=== PATIENT | female | born 1970 | race Caucasian/White ===

== ENCOUNTER 2017-07-19 21:44 | Observation (INO) ==
[2017-07-19] MEDS ORDERED: NITROGLYCERIN 2% OINT 1 INCH/GM PACK TOP STA (22:10)
[2017-07-19] MEDS ORDERED: KETOROLAC 30 MG/1 ML VIAL ONE (22:41)
[2017-07-19 22:44] LABS: Basophils # 0.1 10*3/uL (0.0-0.2); Basophils % 0.7 % (0.0-0.8); Eosinophils # 0.2 10*3/uL (0.0-0.87); Eosinophils % 2.3 % (0.00-10.9); Hematocrit 27.7 VOL% (35.7-47.0); Hemoglobin 8.9 GM/DL (12.0-16.0); Immature Granulocytes % 0.4 %; Immature Granulocytes Absolute 0.03 #; Lymphocytes # 1.7 10*3/uL (1.4-4.0); Lymphocytes % 21.3 % (21.3-54.2); Mean Corpuscular HGB Conc 32.1 GM/DL (32-36); Mean Corpuscular Hemoglobin 28 PG (27-34); Mean Corpuscular Volume 87.1 FL (87-102); Mean Platelet Volume 9.5 FL (9.6-12.0); Monocytes # 0.4 10*3/uL (0.11-0.8); Monocytes % 5.2 % (1.7-12.7); Neutrophils # 5.7 10*3/uL (1.4-7.4); Neutrophils % 70.1 % (38.7-73.9); Platelet Count 392 T/CUMM (130-400); Red Blood Count 3.18 MC/CUMM (3.8-5.5); Red Cell Distribution Width 12.5 % (9.3-17.3); White Blood Count 8.1 T/CUMM (4-12)
[2017-07-19] MEDS ORDERED: NITROGLYCERIN 2% OINT 1 INCH/GM PACK TOP ONE (22:49)
[2017-07-19 22:54] LABS: INR 0.9; Partial Thromboplastin Time 26.7 SECS (0-40)
[2017-07-19 23:06] LABS: Lactic Acid 1.3 MMOL/L (0.4-2.0)
[2017-07-19 23:15] LABS: Alanine Aminotransferase < 9 U/L (13-56); Albumin 2.8 G/DL (3.4-5.0); Alkaline Phosphatase 90 U/L (45-117); Aspartate Amino Transferase 13 U/L (0-37); Bilirubin,Total < 0.39 MG/DL (0.2-1.0); Blood Urea Nitrogen 10 MG/DL (7-18); Glucose 189 MG/DL (74-106); Osmolality,Calculated 286.1 MOS/KG (273-304); Potassium 3.7 MMOL/L (3.5-5.1); Sodium 142 MMOL/L (136-145); Total Protein 7.2 G/DL (6.4-8.3)
[2017-07-20] MEDS ORDERED: oxyCODONE/ACETAMINOPHEN 5-325 MG TABLET PO STA (00:25)
[2017-07-20] MEDS ORDERED: oxyCODONE/ACETAMINOPHEN 5-325 MG TABLET ONE (00:29)
[2017-07-20] MEDS ORDERED: GLUCAGON 1 MG VIAL IM PRN (00:37)
[2017-07-20] MEDS ORDERED: ONDANSETRON 4 MG/2 ML VIAL IV PRN (00:37)
[2017-07-20] MEDS ORDERED: DEXTROSE 50% 25 GM/50 ML VIAL IV PRN (00:37)
[2017-07-20] MEDS: oxyCODONE IR 5 MG TABLET PO SCH ×3 (04:43→16:32)
[2017-07-20 07:39] LABS: Basophils # 0.1 10*3/uL (0.0-0.2); Basophils % 0.7 % (0.0-0.8); Eosinophils # 0.2 10*3/uL (0.0-0.87); Eosinophils % 2.6 % (0.00-10.9); Hematocrit 25.4 VOL% (35.7-47.0); Hemoglobin 8.3 GM/DL (12.0-16.0); Immature Granulocytes % 0.4 %; Immature Granulocytes Absolute 0.03 #; Lymphocytes # 2.2 10*3/uL (1.4-4.0); Lymphocytes % 31.9 % (21.3-54.2); Mean Corpuscular HGB Conc 32.7 GM/DL (32-36); Mean Corpuscular Hemoglobin 28 PG (27-34); Mean Corpuscular Volume 84.9 FL (87-102); Mean Platelet Volume 9.3 FL (9.6-12.0); Monocytes # 0.5 10*3/uL (0.11-0.8); Monocytes % 7.9 % (1.7-12.7); Neutrophils # 3.9 10*3/uL (1.4-7.4); Neutrophils % 56.5 % (38.7-73.9); Platelet Count 318 T/CUMM (130-400); Red Blood Count 2.99 MC/CUMM (3.8-5.5); Red Cell Distribution Width 12.7 % (9.3-17.3); White Blood Count 6.8 T/CUMM (4-12)
[2017-07-20 08:39] LABS: Alanine Aminotransferase < 9 U/L (13-56); Albumin 2.6 G/DL (3.4-5.0); Alkaline Phosphatase 83 U/L (45-117); Aspartate Amino Transferase 11 U/L (0-37); Bilirubin,Total < 0.39 MG/DL (0.2-1.0); Blood Urea Nitrogen 9 MG/DL (7-18); Calcium 8.6 MG/DL (8.5-10.1); Glucose 146 MG/DL (74-106); Osmolality,Calculated 280.4 MOS/KG (273-304); Potassium 3.9 MMOL/L (3.5-5.1); Sodium 140 MMOL/L (136-145); Total Protein 6.6 G/DL (6.4-8.3)
[2017-07-20] MEDS ORDERED: METOPROLOL TARTRATE 25 MG TABLET PO SCH (09:00)
[2017-07-20] MEDS: INSULIN REGULAR 100 UNIT/ML SUBCUT SCH ×4 (10:20→20:54)
[2017-07-20] MEDS: PANTOPRAZOLE 40 MG TABLET PO SCH (10:20)
[2017-07-20] MEDS: ENOXAPARIN 40 MG/0.4 ML SYRINGE SUBCUT SCH (10:21)
[2017-07-20] MEDS: ATORVASTATIN 40 MG TABLET PO SCH (14:07)
[2017-07-20] MEDS: ALPRAZolam 0.5 MG TABLET PO PRN (14:07)
[2017-07-20] MEDS ORDERED: oxyCODONE/ACETAMINOPHEN 5-325 MG TABLET PO ONE (20:29)
[2017-07-20] MEDS ORDERED: ALPRAZolam 0.5 MG TABLET PO ONE (21:13)
[2017-07-20] MEDS ORDERED: ALBUTEROL/IPRATROPIUM 3 ML NEB RESP TX PRN (21:13)
[2017-07-21] MEDS ORDERED: ALPRAZolam 0.5 MG TABLET PO SCH ×2 (00:30→09:00)
[2017-07-21] MEDS: oxyCODONE IR 5 MG TABLET PO SCH ×3 (00:35→11:05)
[2017-07-21] MEDS: ALPRAZolam 0.5 MG TABLET PO PRN (00:38)
[2017-07-21] MEDS ORDERED: ALPRAZolam 0.5 MG TABLET PO PRN (08:30)
[2017-07-21] MEDS: PANTOPRAZOLE 40 MG TABLET PO SCH (08:43)
[2017-07-21] MEDS: ATORVASTATIN 40 MG TABLET PO SCH (08:43)
[2017-07-21] MEDS: INSULIN REGULAR 100 UNIT/ML SUBCUT SCH ×2 (08:44→13:09)
[2017-07-21] MEDS: ENOXAPARIN 40 MG/0.4 ML SYRINGE SUBCUT SCH (08:45)
[2017-07-21] MEDS ORDERED: MULTIVITAMIN (CENTRUM) TABLET PO SCH (09:00)
[2017-07-21] MEDS ORDERED: METOPROLOL SUCCINATE XL 25 MG TABLET PO SCH (09:00)
[2017-07-21] MEDS ORDERED: ASPIRIN CHEW 81 MG TABLET PO SCH (09:00)
[2017-07-21 12:42] VITALS: BP 181/80
== END 2017-07-21 12:43 | disposition home health service (06) ==
LOC: N.ED 21:44 → N.TELEN 07-20 00:37 → INTOOBSV 07-20 00:37 → N.EDINP 07-20 00:37 → N.TELEN 07-20 01:13
PROVIDERS: ADMIT Internal Medicine; ATTEND Internal Medicine

== ENCOUNTER 2018-03-20 14:03 | Inpatient (IN) ==
[2018-03-20] MEDS ORDERED: GLUCAGON 1 MG VIAL IM PRN (15:30)
[2018-03-20] MEDS ORDERED: MORPHINE 4 MG/1 ML VIAL IV PRN (15:30)
[2018-03-20] MEDS ORDERED: diphenhydrAMINE CAP 25 MG CAPSULE PO PRN (15:30)
[2018-03-20] MEDS ORDERED: DEXTROSE 50% 25 GM/50 ML VIAL IV PRN (15:30)
[2018-03-20] MEDS ORDERED: NICOTINE 21 MG/24 HR PATCH TRANSDERM PRN (15:30)
[2018-03-20 16:33] LABS: Basophils % 0.4 % (0.0-0.8); Hematocrit 29.9 VOL% (35.7-47.0); Hemoglobin 9.9 GM/DL (12.0-16.0); Immature Granulocytes % 0.4 %; Immature Granulocytes Absolute 0.03 #; Lymphocytes # 0.9 10*3/uL (1.4-4.0); Lymphocytes % 13.6 % (21.3-54.2); Mean Corpuscular HGB Conc 33.1 GM/DL (32-36); Mean Corpuscular Hemoglobin 29 PG (27-34); Mean Corpuscular Volume 88.7 FL (87-102); Mean Platelet Volume 10.6 FL (9.6-12.0); Monocytes # 0.4 10*3/uL (0.11-0.8); Monocytes % 5.5 % (1.7-12.7); Neutrophils # 5.4 10*3/uL (1.4-7.4); Neutrophils % 80.1 % (38.7-73.9); Platelet Count 136 T/CUMM (130-400); Red Blood Count 3.37 MC/CUMM (3.8-5.5); Red Cell Distribution Width 12.8 % (9.3-17.3); White Blood Count 6.8 T/CUMM (4-12)
[2018-03-20 16:54] LABS: Alanine Aminotransferase 9 U/L (13-56); Albumin 1.5 G/DL (3.4-5.0); Alkaline Phosphatase 90 U/L (45-117); Aspartate Amino Transferase 25 U/L (0-37); Bilirubin,Total < 0.39 MG/DL (0.2-1.0); Blood Urea Nitrogen 14 MG/DL (7-18); Glucose 388 MG/DL (74-106); Osmolality,Calculated 280.5 MOS/KG (273-304); Potassium 2.8 MMOL/L (3.5-5.1); Sodium 132 MMOL/L (136-145); Total Protein 5.7 G/DL (6.4-8.3)
[2018-03-20] MEDS ORDERED: INSULIN LISPRO 100 UNIT/ML SUBCUT SCH (17:00)
[2018-03-20 17:12] LABS: Lactic Acid 1.2 MMOL/L (0.4-2.0)
[2018-03-20] MEDS ORDERED: ASPIRIN CHEW 81 MG TABLET PO ONE (17:19)
[2018-03-20] MEDS: ENOXAPARIN 40 MG/0.4 ML SYRINGE SUBCUT SCH (17:29)
[2018-03-20] MEDS: NITROGLYCERIN 2% OINT 1 INCH/GM PACK TOP SCH (18:03)
[2018-03-20] MEDS: PANTOPRAZOLE 40 MG TABLET PO SCH (18:03)
[2018-03-20] MEDS: cefTRIAXone 1,000 MG in SYRINGE 1 EACH IV SCH (18:45)
[2018-03-20] MEDS: AZITHROMYCIN INJ 500 MG in SODIUM CHLORIDE 0.9% 250 ML IV SCH (18:45)
[2018-03-20] MEDS: ALBUTEROL/IPRATROPIUM 3 ML NEB RESP TX SCH (19:50)
[2018-03-20] MEDS: guaiFENesin/DM ER 600-30 MG TABLET PO PRN (20:24)
[2018-03-20] MEDS: POTASSIUM CHLORIDE 20 MEQ/15 ML UDCUP PER TUBE PRN (20:25)
[2018-03-20] MEDS: INSULIN LISPRO 100 UNIT/ML SUBCUT SCH ×2 (21:26→21:29)
[2018-03-20] MEDS: FUROSEMIDE 40 MG/4 ML VIAL IV SCH (21:26)
[2018-03-20] MEDS: ACETAMINOPHEN 325 MG TABLET PO PRN (21:45)
[2018-03-21] MEDS ORDERED: ENOXAPARIN 60 MG/0.6 ML SYRINGE SUBCUT ONE
[2018-03-21] MEDS: POTASSIUM CHLORIDE 20 MEQ/15 ML UDCUP PER TUBE PRN ×2 (00:20→02:40)
[2018-03-21] MEDS: ALBUTEROL/IPRATROPIUM 3 ML NEB RESP TX SCH ×4 (00:33→19:32)
[2018-03-21] MEDS: NITROGLYCERIN 2% OINT 1 INCH/GM PACK TOP SCH ×4 (02:39→17:04)
[2018-03-21 05:58] LABS: Basophils % 0.3 % (0.0-0.8); Eosinophils % 0.4 % (0.00-10.9); Hematocrit 25.5 VOL% (35.7-47.0); Hemoglobin 8.6 GM/DL (12.0-16.0); Immature Granulocytes % 0.8 %; Immature Granulocytes Absolute 0.06 #; Lymphocytes # 1.6 10*3/uL (1.4-4.0); Lymphocytes % 21.9 % (21.3-54.2); Mean Corpuscular HGB Conc 33.7 GM/DL (32-36); Mean Corpuscular Hemoglobin 30 PG (27-34); Mean Corpuscular Volume 89.2 FL (87-102); Mean Platelet Volume 11.8 FL (9.6-12.0); Monocytes # 0.5 10*3/uL (0.11-0.8); Monocytes % 6.6 % (1.7-12.7); Neutrophils # 5.1 10*3/uL (1.4-7.4); Platelet Count 112 T/CUMM (130-400); Red Blood Count 2.86 MC/CUMM (3.8-5.5); Red Cell Distribution Width 12.8 % (9.3-17.3); White Blood Count 7.2 T/CUMM (4-12)
[2018-03-21 06:21] LABS: Platelet Estimate Decreased; Polychromasia Few
[2018-03-21 06:37] LABS: Calcium 7.7 MG/DL (8.5-10.1); Osmolality,Calculated 267.2 MOS/KG (273-304); Potassium 3.6 MMOL/L (3.5-5.1); Risk Ratio 9.62; Thyroid Stimulating Hormone 0.647 uIU/ml (0.358-3.74); VLDL CHOLESTEROL 65.4 MG/DL
[2018-03-21] MEDS ORDERED: METOPROLOL TARTRATE 5 MG/5 ML VIAL IV ONE (07:29)
[2018-03-21] MEDS ORDERED: HYDROmorphone 2 MG/1 ML VIAL ONE (07:38)
[2018-03-21] MEDS ORDERED: MAGNESIUM SULF RIDER 4 GM in PREMIX 1 EACH IV PRN (07:43)
[2018-03-21] MEDS ORDERED: MAGNESIUM SULF RIDER 2 GM in PREMIX 1 EACH IV PRN (07:43)
[2018-03-21] MEDS ORDERED: FUROSEMIDE 40 MG/4 ML VIAL IV ONE (07:45)
[2018-03-21] MEDS ORDERED: HYDROmorphone 2 MG/1 ML VIAL IV ONE (07:47)
[2018-03-21] MEDS: INSULIN LISPRO 100 UNIT/ML SUBCUT SCH ×4 (07:49→21:03)
[2018-03-21] MEDS ORDERED: methylPREDNISolone SOD SUC 125 MG/2 ML VIAL IV SCH (08:00)
[2018-03-21] MEDS ORDERED: POTASSIUM CHLORIDE 10 MEQ TABLET PO PRN (08:47)
[2018-03-21] MEDS ORDERED: predniSONE 10 MG TABLET PO SCH (09:00)
[2018-03-21] MEDS ORDERED: ROSUVASTATIN 20 MG TABLET PO SCH (09:00)
[2018-03-21] MEDS: FUROSEMIDE 40 MG/4 ML VIAL IV SCH ×2 (09:16→21:04)
[2018-03-21] MEDS: ASPIRIN EC 81 MG TABLET PO SCH (09:25)
[2018-03-21] MEDS: PANTOPRAZOLE 40 MG TABLET PO SCH (09:25)
[2018-03-21] MEDS: BUDESONIDE/FORMOTEROL 160-4.5 INHALER 6 GM INH SCH ×2 (09:25→21:05)
[2018-03-21] MEDS: GABAPENTIN 300 MG CAPSULE PO SCH ×2 (09:25→21:05)
[2018-03-21] MEDS: METOPROLOL TARTRATE 25 MG TABLET PO SCH ×2 (10:59→21:05)
[2018-03-21] MEDS ORDERED: ACETYLCYSTEINE 600 MG CAPSULE PO SCH (11:00)
[2018-03-21] MEDS: methylPREDNISolone SOD SUC 40 MG/1 ML VIAL IV SCH (15:47)
[2018-03-21] MEDS: guaiFENesin/DM ER 600-30 MG TABLET PO PRN (15:54)
[2018-03-21] MEDS: ENOXAPARIN 40 MG/0.4 ML SYRINGE SUBCUT SCH (15:57)
[2018-03-21] MEDS: cefTRIAXone 1,000 MG in SYRINGE 1 EACH IV SCH (16:09)
[2018-03-21] MEDS: ALBUTEROL 2.5 MG/3 ML NEB RESP TX PRN (16:13)
[2018-03-21] MEDS: AZITHROMYCIN INJ 500 MG in SODIUM CHLORIDE 0.9% 250 ML IV SCH (17:12)
[2018-03-21 18:17] LABS: Hematocrit 25.8 VOL% (35.7-47.0); Hemoglobin 8.4 GM/DL (12.0-16.0)
[2018-03-21] MEDS: INSULIN GLARGINE 100 UNIT/ML SUBCUT SCH (21:03)
[2018-03-21] MEDS: traZODone 50 MG TABLET PO SCH (21:05)
[2018-03-22] MEDS: methylPREDNISolone SOD SUC 40 MG/1 ML VIAL IV SCH ×4 (00:44→21:43)
[2018-03-22] MEDS: NITROGLYCERIN 2% OINT 1 INCH/GM PACK TOP SCH ×2 (00:45→06:15)
[2018-03-22] MEDS: ALBUTEROL/IPRATROPIUM 3 ML NEB RESP TX SCH ×4 (01:04→19:17)
[2018-03-22 04:25] LABS: Basophils % 0.1 % (0.0-0.8); Hematocrit 25.6 VOL% (35.7-47.0); Hemoglobin 8.3 GM/DL (12.0-16.0); Immature Granulocytes % 0.6 %; Immature Granulocytes Absolute 0.06 #; Lymphocytes # 1.1 10*3/uL (1.4-4.0); Lymphocytes % 10.1 % (21.3-54.2); Mean Corpuscular HGB Conc 32.4 GM/DL (32-36); Mean Corpuscular Hemoglobin 30 PG (27-34); Mean Corpuscular Volume 91.1 FL (87-102); Mean Platelet Volume 11.4 FL (9.6-12.0); Monocytes # 0.5 10*3/uL (0.11-0.8); Monocytes % 4.3 % (1.7-12.7); Neutrophils % 84.9 % (38.7-73.9); Platelet Count 159 T/CUMM (130-400); Red Blood Count 2.81 MC/CUMM (3.8-5.5); Red Cell Distribution Width 12.9 % (9.3-17.3); White Blood Count 10.5 T/CUMM (4-12)
[2018-03-22 04:56] LABS: Blood Urea Nitrogen 34 MG/DL (7-18); Calcium 7.7 MG/DL (8.5-10.1); Glucose 396 MG/DL (74-106); Osmolality,Calculated 282.9 MOS/KG (273-304); Potassium 3.7 MMOL/L (3.5-5.1); Sodium 129 MMOL/L (136-145)
[2018-03-22] MEDS: FUROSEMIDE 40 MG/4 ML VIAL IV SCH (08:05)
[2018-03-22] MEDS: guaiFENesin/DM ER 600-30 MG TABLET PO PRN ×2 (08:06→21:44)
[2018-03-22] MEDS: INSULIN LISPRO 100 UNIT/ML SUBCUT SCH ×4 (08:49→21:43)
[2018-03-22] MEDS: PANTOPRAZOLE 40 MG TABLET PO SCH (08:50)
[2018-03-22] MEDS: ROSUVASTATIN 20 MG TABLET PO SCH (08:50)
[2018-03-22] MEDS: ASPIRIN EC 81 MG TABLET PO SCH (08:50)
[2018-03-22] MEDS: GABAPENTIN 300 MG CAPSULE PO SCH ×2 (08:50→21:44)
[2018-03-22] MEDS: METOPROLOL TARTRATE 25 MG TABLET PO SCH ×2 (08:50→21:44)
[2018-03-22] MEDS: MEPERIDINE 25 MG/1 ML VIAL IV PRN ×2 (09:01→21:30)
[2018-03-22] MEDS: BUDESONIDE/FORMOTEROL 160-4.5 INHALER 6 GM INH SCH ×2 (09:04→21:44)
[2018-03-22] MEDS: SODIUM BICARBONATE 650 MG TABLET PO SCH ×3 (09:15→21:44)
[2018-03-22] MEDS: BUTALBITAL/ACETAMIN/CAFFEINE 50-325-40 MG TABLET PO PRN ×2 (11:40→16:40)
[2018-03-22] MEDS: ENOXAPARIN 40 MG/0.4 ML SYRINGE SUBCUT SCH (14:49)
[2018-03-22] MEDS: cefTRIAXone 1,000 MG in SYRINGE 1 EACH IV SCH (16:38)
[2018-03-22] MEDS: INSULIN GLARGINE 100 UNIT/ML SUBCUT SCH (21:43)
[2018-03-22] MEDS: AZITHROMYCIN 250 MG TABLET PO SCH (21:44)
[2018-03-22] MEDS: traZODone 50 MG TABLET PO SCH (21:44)
[2018-03-23] MEDS: ALBUTEROL/IPRATROPIUM 3 ML NEB RESP TX SCH ×4 (00:43→19:16)
[2018-03-23 04:47] LABS: Calcium 7.7 MG/DL (8.5-10.1); Osmolality,Calculated 271.8 MOS/KG (273-304); Potassium 3.4 MMOL/L (3.5-5.1)
[2018-03-23] MEDS: POTASSIUM CHLORIDE 20 MEQ/15 ML UDCUP PER TUBE PRN ×3 (06:00→12:46)
[2018-03-23] MEDS: MEPERIDINE 25 MG/1 ML VIAL IV PRN ×3 (07:40→19:37)
[2018-03-23] MEDS: INSULIN LISPRO 100 UNIT/ML SUBCUT SCH ×4 (07:45→21:21)
[2018-03-23] MEDS: SODIUM BICARBONATE 650 MG TABLET PO SCH ×3 (09:01→21:21)
[2018-03-23] MEDS: FUROSEMIDE 40 MG/4 ML VIAL IV SCH (09:02)
[2018-03-23] MEDS: ASPIRIN EC 81 MG TABLET PO SCH (09:02)
[2018-03-23] MEDS: GABAPENTIN 300 MG CAPSULE PO SCH ×2 (09:03→21:21)
[2018-03-23] MEDS: PANTOPRAZOLE 40 MG TABLET PO SCH (09:03)
[2018-03-23] MEDS: ROSUVASTATIN 20 MG TABLET PO SCH (09:03)
[2018-03-23] MEDS: methylPREDNISolone SOD SUC 40 MG/1 ML VIAL IV SCH ×2 (09:04→21:20)
[2018-03-23] MEDS: BUDESONIDE/FORMOTEROL 160-4.5 INHALER 6 GM INH SCH ×2 (09:05→21:22)
[2018-03-23] MEDS: METOPROLOL TARTRATE 25 MG TABLET PO SCH ×2 (09:08→21:21)
[2018-03-23] MEDS: ENOXAPARIN 40 MG/0.4 ML SYRINGE SUBCUT SCH (14:40)
[2018-03-23] MEDS: SODIUM CHLORIDE 0.9% 1,000 ML IV SCH (14:51)
[2018-03-23] MEDS: cefTRIAXone 1,000 MG in SYRINGE 1 EACH IV SCH (17:49)
[2018-03-23] MEDS: POLYETHYLENE GLYCOL POWDER 17 GM PACK PO SCH (18:33)
[2018-03-23] MEDS: BISACODYL 5 MG TABLET PO SCH (18:33)
[2018-03-23] MEDS: ONDANSETRON 4 MG/2 ML VIAL IV PRN (18:55)
[2018-03-23] MEDS: AZITHROMYCIN 250 MG TABLET PO SCH (21:20)
[2018-03-23] MEDS: guaiFENesin/DM ER 600-30 MG TABLET PO PRN (21:21)
[2018-03-23] MEDS: traZODone 50 MG TABLET PO SCH (21:21)
[2018-03-23] MEDS: DOCUSATE SODIUM 100 MG CAPSULE PO PRN (21:21)
[2018-03-23] MEDS: INSULIN GLARGINE 100 UNIT/ML SUBCUT SCH (21:21)
[2018-03-24] MEDS: ALBUTEROL/IPRATROPIUM 3 ML NEB RESP TX SCH ×4 (00:40→19:51)
[2018-03-24 04:54] LABS: Calcium 7.4 MG/DL (8.5-10.1); Osmolality,Calculated 268.2 MOS/KG (273-304); Osmolality,Calculated 270.1 MOS/KG (273-304); Potassium 5.2 MMOL/L (3.5-5.1)
[2018-03-24] MEDS: MEPERIDINE 25 MG/1 ML VIAL IV PRN (06:38)
[2018-03-24] MEDS ORDERED: POLYETHYLENE GLYCOL POWDER 17 GM PACK PO SCH (09:00)
[2018-03-24] MEDS: INSULIN LISPRO 100 UNIT/ML SUBCUT SCH ×4 (09:16→20:43)
[2018-03-24] MEDS: methylPREDNISolone SOD SUC 40 MG/1 ML VIAL IV SCH (09:16)
[2018-03-24] MEDS: METOPROLOL TARTRATE 25 MG TABLET PO SCH ×2 (09:17→20:42)
[2018-03-24] MEDS: FUROSEMIDE 40 MG/4 ML VIAL IV SCH (09:17)
[2018-03-24] MEDS: POLYETHYLENE GLYCOL POWDER 17 GM PACK PO SCH (09:17)
[2018-03-24] MEDS: SODIUM BICARBONATE 650 MG TABLET PO SCH ×3 (09:17→20:42)
[2018-03-24] MEDS: PANTOPRAZOLE 40 MG TABLET PO SCH (09:18)
[2018-03-24] MEDS: BISACODYL 5 MG TABLET PO SCH (09:18)
[2018-03-24] MEDS: ROSUVASTATIN 20 MG TABLET PO SCH (09:18)
[2018-03-24] MEDS: ASPIRIN EC 81 MG TABLET PO SCH (09:18)
[2018-03-24] MEDS: GABAPENTIN 300 MG CAPSULE PO SCH ×2 (09:18→20:41)
[2018-03-24] MEDS: SODIUM CHLORIDE 0.9% 1,000 ML IV SCH (09:27)
[2018-03-24] MEDS: BUDESONIDE/FORMOTEROL 160-4.5 INHALER 6 GM INH SCH ×2 (09:27→20:42)
[2018-03-24] MEDS ORDERED: SODIUM POLYSTYRENE SULFATE 15 GM/60 ML BOTTLE PO STA (14:26)
[2018-03-24] MEDS: cefTRIAXone 1,000 MG in SYRINGE 1 EACH IV SCH (15:07)
[2018-03-24] MEDS: ENOXAPARIN 40 MG/0.4 ML SYRINGE SUBCUT SCH (15:07)
[2018-03-24 16:01] LABS: Apearance,Urine Slightly Hazy (Clear); Bilirubin,Urine Negative (Negative); Blood, Urine Moderate mg/dL (Negative); Glucose,Urine (UA) Negative (Negative); Hyaline Casts,Urine 10 /LPF (0-3); Ketones,Urine Negative (Negative); Mucus,Urine Occasional /LPF (Occasional); Nitrite,Urine Negative (Negative); Protein,Urine 100 MG/DL; RBC,Urine 1 /HPF (0-4); Squamous Epithelial Cell,Urine Occasional /HPF (0-10); Urine Color Yellow (Yellow); Urine Specific Gravity 1.013 (1.001-1.035); Urine Urobilinogen < 2.0 EU/DL (0.2-1.0); WBC,Urine 3 /HPF (0-6)
[2018-03-24] MEDS: AZITHROMYCIN 250 MG TABLET PO SCH (20:41)
[2018-03-24] MEDS: traZODone 50 MG TABLET PO SCH (20:42)
[2018-03-24] MEDS: ONDANSETRON 4 MG/2 ML VIAL IV PRN (20:44)
[2018-03-24] MEDS: INSULIN GLARGINE 100 UNIT/ML SUBCUT SCH (20:44)
[2018-03-24] MEDS: guaiFENesin/DM ER 600-30 MG TABLET PO PRN (20:44)
[2018-03-25] MEDS: ALBUTEROL/IPRATROPIUM 3 ML NEB RESP TX SCH ×4 (01:45→19:45)
[2018-03-25 04:33] LABS: Calcium 7.1 MG/DL (8.5-10.1); Osmolality,Calculated 267.1 MOS/KG (273-304); Potassium 4.9 MMOL/L (3.5-5.1)
[2018-03-25] MEDS: SODIUM CHLORIDE 0.9% 1,000 ML IV SCH (07:29)
[2018-03-25 08:32] LABS: Basophils % 0.1 % (0.0-0.8); Eosinophils % 0.2 % (0.00-10.9); Hemoglobin 7.9 GM/DL (12.0-16.0); Immature Granulocytes % 1.8 %; Immature Granulocytes Absolute 0.19 #; Lymphocytes % 9.3 % (21.3-54.2); Mean Corpuscular HGB Conc 32.9 GM/DL (32-36); Mean Corpuscular Hemoglobin 30 PG (27-34); Mean Corpuscular Volume 89.6 FL (87-102); Mean Platelet Volume 11.3 FL (9.6-12.0); Monocytes # 0.3 10*3/uL (0.11-0.8); Monocytes % 2.9 % (1.7-12.7); NRBC # 0.11 10*3/uL; Neutrophils # 8.8 10*3/uL (1.4-7.4); Neutrophils % 85.7 % (38.7-73.9); Platelet Count 264 T/CUMM (130-400); Red Blood Count 2.68 MC/CUMM (3.8-5.5); Red Cell Distribution Width 13.3 % (9.3-17.3); White Blood Count 10.3 T/CUMM (4-12)
[2018-03-25] MEDS: SODIUM BICARBONATE 650 MG TABLET PO SCH ×3 (09:33→20:42)
[2018-03-25] MEDS: BISACODYL 5 MG TABLET PO SCH (09:33)
[2018-03-25] MEDS: INSULIN LISPRO 100 UNIT/ML SUBCUT SCH ×4 (09:33→20:16)
[2018-03-25] MEDS: ROSUVASTATIN 20 MG TABLET PO SCH (09:33)
[2018-03-25] MEDS: FUROSEMIDE 40 MG/4 ML VIAL IV SCH (09:34)
[2018-03-25] MEDS: METOPROLOL TARTRATE 25 MG TABLET PO SCH (09:34)
[2018-03-25] MEDS: PANTOPRAZOLE 40 MG TABLET PO SCH (09:34)
[2018-03-25] MEDS: predniSONE 20 MG TABLET PO SCH (09:34)
[2018-03-25] MEDS: ASPIRIN EC 81 MG TABLET PO SCH (09:34)
[2018-03-25] MEDS: POLYETHYLENE GLYCOL POWDER 17 GM PACK PO SCH (09:35)
[2018-03-25] MEDS: GABAPENTIN 300 MG CAPSULE PO SCH (09:35)
[2018-03-25] MEDS: BUDESONIDE/FORMOTEROL 160-4.5 INHALER 6 GM INH SCH ×2 (09:36→20:42)
[2018-03-25] MEDS: ALBUTEROL 2.5 MG/3 ML NEB RESP TX PRN (11:00)
[2018-03-25] MEDS ORDERED: NITROGLYCERIN SL 0.4 MG TABLET SL PRN (11:19)
[2018-03-25] MEDS: METOPROLOL TARTRATE 50 MG TABLET PO SCH ×2 (12:00→20:42)
[2018-03-25] MEDS ORDERED: SODIUM CHLORIDE 0.9% 1,000 ML IV PRN (15:08)
[2018-03-25] MEDS: ENOXAPARIN 40 MG/0.4 ML SYRINGE SUBCUT SCH (17:01)
[2018-03-25] MEDS: cefTRIAXone 1,000 MG in SYRINGE 1 EACH IV SCH (17:01)
[2018-03-25 17:34] LABS: Hematocrit 24.7 VOL% (35.7-47.0)
[2018-03-25] MEDS: GABAPENTIN 100 MG CAPSULE PO SCH (20:42)
[2018-03-25] MEDS: traZODone 50 MG TABLET PO SCH (20:42)
[2018-03-25] MEDS: AZITHROMYCIN 250 MG TABLET PO SCH (20:42)
[2018-03-25] MEDS: INSULIN GLARGINE 100 UNIT/ML SUBCUT SCH (20:46)
[2018-03-26] MEDS: ALBUTEROL/IPRATROPIUM 3 ML NEB RESP TX SCH ×4 (01:08→18:30)
[2018-03-26] MEDS: SODIUM CHLORIDE 0.9% 1,000 ML IV SCH (04:41)
[2018-03-26 07:12] LABS: Hematocrit 29.3 VOL% (35.7-47.0); Hemoglobin 9.6 GM/DL (12.0-16.0)
[2018-03-26 08:07] LABS: Calcium 6.8 MG/DL (8.5-10.1); Osmolality,Calculated 269.8 MOS/KG (273-304); Potassium 5.3 MMOL/L (3.5-5.1)
[2018-03-26] MEDS: SODIUM BICARBONATE 650 MG TABLET PO SCH ×3 (09:56→20:33)
[2018-03-26] MEDS: POLYETHYLENE GLYCOL POWDER 17 GM PACK PO SCH (09:56)
[2018-03-26] MEDS: BISACODYL 5 MG TABLET PO SCH (09:57)
[2018-03-26] MEDS: ROSUVASTATIN 20 MG TABLET PO SCH (09:57)
[2018-03-26] MEDS: FUROSEMIDE 40 MG/4 ML VIAL IV SCH (09:57)
[2018-03-26] MEDS: predniSONE 20 MG TABLET PO SCH (09:57)
[2018-03-26] MEDS: PANTOPRAZOLE 40 MG TABLET PO SCH (09:57)
[2018-03-26] MEDS: ASPIRIN EC 81 MG TABLET PO SCH (09:57)
[2018-03-26] MEDS: METOPROLOL TARTRATE 50 MG TABLET PO SCH ×2 (09:57→20:33)
[2018-03-26] MEDS: BUDESONIDE/FORMOTEROL 160-4.5 INHALER 6 GM INH SCH ×2 (10:03→20:36)
[2018-03-26] MEDS: INSULIN LISPRO 100 UNIT/ML SUBCUT SCH ×4 (10:13→20:36)
[2018-03-26] MEDS ORDERED: FUROSEMIDE 40 MG/4 ML VIAL IV ONE (11:27)
[2018-03-26 13:11] LABS: ABG HCO3 24.3 MMOL/L (20-26); ABG Oxygen Saturation 97.8 % (95-100); ABG PCO2 34.2 MM HG (35-48); ABG PO2 106.9 MM HG (80-95); ABG TCO2 25.4 MMOL/L (23-27)
[2018-03-26] MEDS: ONDANSETRON 4 MG/2 ML VIAL IV PRN (14:37)
[2018-03-26] MEDS: cefTRIAXone 1,000 MG in SYRINGE 1 EACH IV SCH (15:43)
[2018-03-26] MEDS: ENOXAPARIN 40 MG/0.4 ML SYRINGE SUBCUT SCH (15:48)
[2018-03-26] MEDS ORDERED: SODIUM PHOSPHATE ENEMA 133 ML BOTTLE RECTAL PRN (17:19)
[2018-03-26] MEDS: DOCUSATE SODIUM 100 MG CAPSULE PO PRN (20:33)
[2018-03-26] MEDS: AZITHROMYCIN 250 MG TABLET PO SCH (20:33)
[2018-03-26] MEDS: traZODone 50 MG TABLET PO SCH (20:33)
[2018-03-26] MEDS: GABAPENTIN 100 MG CAPSULE PO SCH (20:33)
[2018-03-26] MEDS: INSULIN GLARGINE 100 UNIT/ML SUBCUT SCH (20:35)
[2018-03-27 05:12] LABS: Calcium 7.4 MG/DL (8.5-10.1); Osmolality,Calculated 273.7 MOS/KG (273-304); Potassium 3.9 MMOL/L (3.5-5.1)
[2018-03-27] MEDS: ALBUTEROL/IPRATROPIUM 3 ML NEB RESP TX SCH ×4 (07:10→19:27)
[2018-03-27] MEDS: INSULIN LISPRO 100 UNIT/ML SUBCUT SCH ×4 (07:34→21:21)
[2018-03-27] MEDS: predniSONE 20 MG TABLET PO SCH (08:12)
[2018-03-27] MEDS: ROSUVASTATIN 20 MG TABLET PO SCH (08:13)
[2018-03-27] MEDS: SODIUM BICARBONATE 650 MG TABLET PO SCH ×3 (08:13→20:32)
[2018-03-27] MEDS: ASPIRIN EC 81 MG TABLET PO SCH (08:13)
[2018-03-27] MEDS: BISACODYL 5 MG TABLET PO SCH (08:13)
[2018-03-27] MEDS: POLYETHYLENE GLYCOL POWDER 17 GM PACK PO SCH (08:14)
[2018-03-27] MEDS: METOPROLOL TARTRATE 50 MG TABLET PO SCH ×2 (08:14→20:32)
[2018-03-27] MEDS: BUDESONIDE/FORMOTEROL 160-4.5 INHALER 6 GM INH SCH ×2 (08:14→21:20)
[2018-03-27] MEDS: FUROSEMIDE 40 MG/4 ML VIAL IV SCH (08:14)
[2018-03-27] MEDS: PANTOPRAZOLE 40 MG TABLET PO SCH (08:14)
[2018-03-27] MEDS: ACETAMINOPHEN 325 MG TABLET PO PRN (12:47)
[2018-03-27] MEDS: ENOXAPARIN 40 MG/0.4 ML SYRINGE SUBCUT SCH (15:13)
[2018-03-27] MEDS: cefTRIAXone 1,000 MG in SYRINGE 1 EACH IV SCH (15:23)
[2018-03-27] MEDS: GABAPENTIN 100 MG CAPSULE PO SCH (20:32)
[2018-03-27] MEDS: traZODone 50 MG TABLET PO SCH (20:32)
[2018-03-27] MEDS: AZITHROMYCIN 250 MG TABLET PO SCH (20:32)
[2018-03-27] MEDS: INSULIN GLARGINE 100 UNIT/ML SUBCUT SCH (21:22)
[2018-03-28] MEDS: ALBUTEROL/IPRATROPIUM 3 ML NEB RESP TX SCH ×4 (00:56→19:39)
[2018-03-28 07:34] LABS: Calcium 8.1 MG/DL (8.5-10.1); Osmolality,Calculated 273.5 MOS/KG (273-304); Potassium 3.9 MMOL/L (3.5-5.1)
[2018-03-28] MEDS: INSULIN LISPRO 100 UNIT/ML SUBCUT SCH ×4 (08:46→22:17)
[2018-03-28] MEDS: POLYETHYLENE GLYCOL POWDER 17 GM PACK PO SCH (08:47)
[2018-03-28] MEDS: FUROSEMIDE 40 MG/4 ML VIAL IV SCH (08:47)
[2018-03-28] MEDS: ROSUVASTATIN 20 MG TABLET PO SCH (08:48)
[2018-03-28] MEDS: predniSONE 20 MG TABLET PO SCH (08:49)
[2018-03-28] MEDS: BISACODYL 5 MG TABLET PO SCH (08:49)
[2018-03-28] MEDS: SODIUM BICARBONATE 650 MG TABLET PO SCH ×3 (08:49→22:20)
[2018-03-28] MEDS: ASPIRIN EC 81 MG TABLET PO SCH (08:49)
[2018-03-28] MEDS: PANTOPRAZOLE 40 MG TABLET PO SCH (08:49)
[2018-03-28] MEDS: BUDESONIDE/FORMOTEROL 160-4.5 INHALER 6 GM INH SCH ×2 (08:50→22:20)
[2018-03-28] MEDS: METOPROLOL TARTRATE 50 MG TABLET PO SCH ×2 (08:52→22:19)
[2018-03-28] MEDS ORDERED: SODIUM PHOSPHATE ENEMA 133 ML BOTTLE RECTAL ONE (10:55)
[2018-03-28] MEDS ORDERED: MAGNESIUM HYDROXIDE SUSP 30 ML UDCUP PO ONE (10:55)
[2018-03-28] MEDS: cefTRIAXone 1,000 MG in SYRINGE 1 EACH IV SCH (16:17)
[2018-03-28] MEDS: ENOXAPARIN 40 MG/0.4 ML SYRINGE SUBCUT SCH (16:17)
[2018-03-28] MEDS: INSULIN GLARGINE 100 UNIT/ML SUBCUT SCH (22:18)
[2018-03-28] MEDS: GABAPENTIN 100 MG CAPSULE PO SCH (22:19)
[2018-03-28] MEDS: traZODone 50 MG TABLET PO SCH (22:19)
[2018-03-28] MEDS: AZITHROMYCIN 250 MG TABLET PO SCH (22:19)
[2018-03-29] MEDS: ALBUTEROL/IPRATROPIUM 3 ML NEB RESP TX SCH ×2 (01:16→07:10)
[2018-03-29 07:48] VITALS: BP 140/64
[2018-03-29] MEDS: FUROSEMIDE 40 MG/4 ML VIAL IV SCH (09:02)
[2018-03-29] MEDS: INSULIN LISPRO 100 UNIT/ML SUBCUT SCH ×2 (09:02→12:23)
[2018-03-29] MEDS: METOPROLOL TARTRATE 50 MG TABLET PO SCH (09:03)
[2018-03-29] MEDS: ASPIRIN EC 81 MG TABLET PO SCH (09:03)
[2018-03-29] MEDS: SODIUM BICARBONATE 650 MG TABLET PO SCH (09:03)
[2018-03-29] MEDS: ROSUVASTATIN 20 MG TABLET PO SCH (09:03)
[2018-03-29] MEDS: PANTOPRAZOLE 40 MG TABLET PO SCH (09:03)
[2018-03-29] MEDS: BISACODYL 5 MG TABLET PO SCH (09:03)
[2018-03-29] MEDS: POLYETHYLENE GLYCOL POWDER 17 GM PACK PO SCH (09:03)
[2018-03-29] MEDS: predniSONE 20 MG TABLET PO SCH (09:03)
[2018-03-29] MEDS: BUDESONIDE/FORMOTEROL 160-4.5 INHALER 6 GM INH SCH (09:04)
== END 2018-03-29 12:44 | disposition home or self-care (01) | DRG 280 ==
LOC: EDUNIT# → N.ED 14:03 → SUATTDRO 15:30 → N.EDINP 15:30 → N.2W 17:17 → N.TELEN 18:28
PROVIDERS: ADMIT Internal Medicine; ATTEND Internal Medicine

== ENCOUNTER 2020-01-19 12:09 | Observation (INO) ==
[2020-01-19] MEDS: HYDROmorphone 2 MG/1 ML VIAL IV PRN ×2 (15:00→23:27)
[2020-01-19] MEDS ORDERED: ZALEPLON 5 MG CAPSULE PO PRN (15:04)
[2020-01-19] MEDS ORDERED: ALBUTEROL/IPRATROPIUM 3 ML NEB RESP TX PRN (15:04)
[2020-01-19] MEDS ORDERED: ACETAMINOPHEN 325 MG TABLET PO PRN (15:04)
[2020-01-19] MEDS ORDERED: LACTULOSE 20 GM/30 ML UDCUP PO PRN (15:04)
[2020-01-19] MEDS ORDERED: hydrALAZINE 20 MG/1 ML VIAL IV PRN (15:04)
[2020-01-19] MEDS ORDERED: SIMETHICONE CHEW 125 MG TABLET PO PRN (15:04)
[2020-01-19] MEDS ORDERED: DEXTROSE 50% 25 GM/50 ML VIAL IV PRN (15:04)
[2020-01-19] MEDS ORDERED: GLUCAGON 1 MG VIAL IM PRN (15:04)
[2020-01-19] MEDS ORDERED: BISACODYL 5 MG TABLET PO PRN (15:04)
[2020-01-19] MEDS ORDERED: DOCUSATE SODIUM 100 MG CAPSULE PO PRN (15:04)
[2020-01-19] MEDS ORDERED: ONDANSETRON 4 MG/2 ML VIAL IV PRN (15:04)
[2020-01-19] MEDS: FUROSEMIDE 40 MG/4 ML VIAL IV SCH (16:49)
[2020-01-19] MEDS: LIDOCAINE 5% PATCH TRANSDERM SCH (16:50)
[2020-01-19] MEDS: INSULIN REGULAR 100 UNIT/ML SUBCUT SCH ×2 (17:17→20:58)
[2020-01-19] MEDS: oxyCODONE/ACETAMINOPHEN 5-325 MG TABLET PO PRN (19:17)
[2020-01-19] MEDS: GABAPENTIN 600 MG TABLET PO SCH (20:35)
[2020-01-19] MEDS: BRIMONIDINE 0.1% OPH SOLN 5 ML BOTTLE RIGHT EYE SCH (20:36)
[2020-01-19] MEDS: ENOXAPARIN 40 MG/0.4 ML SYRINGE SUBCUT SCH (20:36)
[2020-01-19] MEDS: carvediloL 12.5 MG TABLET PO SCH (20:36)
[2020-01-19] MEDS ORDERED: ATORVASTATIN 20 MG TABLET PO SCH (21:00)
[2020-01-20 04:41] LABS: Basophils # 0.1 10*3/uL (0.0-0.2); Eosinophils # 0.2 10*3/uL (0.0-0.87); Eosinophils % 2.7 % (0.00-10.9); Hematocrit 29.3 VOL% (35.7-47.0); Hemoglobin 9.1 GM/DL (12.0-16.0); Immature Granulocytes % 0.6 %; Immature Granulocytes Absolute 0.04 #; Lymphocytes # 1.7 10*3/uL (1.4-4.0); Lymphocytes % 27.4 % (21.3-54.2); Mean Corpuscular HGB Conc 31.1 GM/DL (32-36); Mean Corpuscular Volume 91.8 FL (87-102); Mean Platelet Volume 10.9 FL (9.6-12.0); Monocytes % 9.3 % (1.7-12.7); Platelet Count 208 T/CUMM (130-400); Red Blood Count 3.19 MC/CUMM (3.8-5.5); Red Cell Distribution Width 15.4 % (9.3-17.3); White Blood Count 6.2 T/CUMM (4-12)
[2020-01-20 05:09] LABS: Albumin 2.2 G/DL (3.4-5.0); Bilirubin,Total 1.2 MG/DL (0.2-1.0); Calcium 8.3 MG/DL (8.5-10.1); Osmolality,Calculated 285.5 MOS/KG (273-304); Total Protein 5.8 G/DL (6.4-8.3)
[2020-01-20] MEDS: HYDROmorphone 2 MG/1 ML VIAL IV PRN ×3 (07:27→22:32)
[2020-01-20] MEDS: LIDOCAINE 5% PATCH TRANSDERM SCH (08:37)
[2020-01-20] MEDS: FUROSEMIDE 40 MG/4 ML VIAL IV SCH ×2 (08:37→16:30)
[2020-01-20] MEDS: BRIMONIDINE 0.1% OPH SOLN 5 ML BOTTLE RIGHT EYE SCH ×3 (08:37→20:49)
[2020-01-20] MEDS: INSULIN REGULAR 100 UNIT/ML SUBCUT SCH ×4 (08:37→21:33)
[2020-01-20] MEDS: ASPIRIN CHEW 81 MG TABLET PO SCH (08:37)
[2020-01-20] MEDS: carvediloL 12.5 MG TABLET PO SCH ×2 (08:37→20:39)
[2020-01-20] MEDS: PANTOPRAZOLE 40 MG TABLET PO SCH (08:38)
[2020-01-20] MEDS: GABAPENTIN 600 MG TABLET PO SCH ×3 (08:38→20:39)
[2020-01-20] MEDS ORDERED: CLOPIDOGREL 300 MG TABLET PO ONE (08:55)
[2020-01-20] MEDS ORDERED: FUROSEMIDE 40 MG/4 ML VIAL IV ONE (08:56)
[2020-01-20] MEDS ORDERED: CLOPIDOGREL 75 MG TABLET PO SCH (09:00)
[2020-01-20] MEDS: hydrALAZINE 10 MG TABLET PO SCH ×3 (10:33→20:39)
[2020-01-20] MEDS: ISOSORBIDE MONONITRATE 30 MG TABLET PO SCH (10:34)
[2020-01-20] MEDS: oxyCODONE/ACETAMINOPHEN 5-325 MG TABLET PO PRN ×2 (11:41→20:41)
[2020-01-20] MEDS ORDERED: ATORVASTATIN 40 MG TABLET PO SCH (14:05)
[2020-01-20] MEDS ORDERED: MAGNESIUM SULF RIDER 2 GM in PREMIX 1 EACH IV PRN (16:23)
[2020-01-20] MEDS ORDERED: MAGNESIUM SULF RIDER 4 GM in PREMIX 1 EACH IV PRN (16:23)
[2020-01-20] MEDS: POTASSIUM CHLORIDE RIDER 10 MEQ in PREMIX 1 EACH IV PRN ×3 (17:03→19:18)
[2020-01-20] MEDS: ENOXAPARIN 40 MG/0.4 ML SYRINGE SUBCUT SCH (20:39)
[2020-01-21] MEDS: oxyCODONE/ACETAMINOPHEN 5-325 MG TABLET PO PRN (05:46)
[2020-01-21 06:36] LABS: Calcium 8.7 MG/DL (8.5-10.1); Osmolality,Calculated 271.2 MOS/KG (273-304)
[2020-01-21 06:43] LABS: Basophils # 0.1 10*3/uL (0.0-0.2); Basophils % 0.9 % (0.0-0.8); Eosinophils # 0.2 10*3/uL (0.0-0.87); Eosinophils % 2.8 % (0.00-10.9); Hematocrit 30.4 VOL% (35.7-47.0); Hemoglobin 9.1 GM/DL (12.0-16.0); Immature Granulocytes % 0.6 %; Immature Granulocytes Absolute 0.03 #; Lymphocytes # 1.4 10*3/uL (1.4-4.0); Lymphocytes % 25.5 % (21.3-54.2); Mean Corpuscular HGB Conc 29.9 GM/DL (32-36); Mean Corpuscular Volume 97.4 FL (87-102); Mean Platelet Volume 10.6 FL (9.6-12.0); Neutrophils % 61.2 % (38.7-73.9); Platelet Count 207 T/CUMM (130-400); Red Blood Count 3.12 MC/CUMM (3.8-5.5); Red Cell Distribution Width 15.1 % (9.3-17.3); White Blood Count 5.3 T/CUMM (4-12)
[2020-01-21] MEDS: carvediloL 12.5 MG TABLET PO SCH (08:49)
[2020-01-21] MEDS: GABAPENTIN 600 MG TABLET PO SCH (08:49)
[2020-01-21] MEDS: ASPIRIN CHEW 81 MG TABLET PO SCH (08:49)
[2020-01-21] MEDS: hydrALAZINE 10 MG TABLET PO SCH (08:49)
[2020-01-21] MEDS: FUROSEMIDE 40 MG/4 ML VIAL IV SCH (08:49)
[2020-01-21] MEDS: PANTOPRAZOLE 40 MG TABLET PO SCH (08:49)
[2020-01-21] MEDS: ISOSORBIDE MONONITRATE 30 MG TABLET PO SCH (08:49)
[2020-01-21] MEDS: INSULIN REGULAR 100 UNIT/ML SUBCUT SCH ×2 (08:50→11:37)
[2020-01-21] MEDS: HYDROmorphone 2 MG/1 ML VIAL IV PRN (08:50)
[2020-01-21] MEDS: LIDOCAINE 5% PATCH TRANSDERM SCH (08:56)
[2020-01-21] MEDS: BRIMONIDINE 0.1% OPH SOLN 5 ML BOTTLE RIGHT EYE SCH (09:00)
[2020-01-21] MEDS ORDERED: CLOPIDOGREL 75 MG TABLET PO SCH (09:00)
[2020-01-21 11:25] VITALS: BP 136/77
== END 2020-01-21 12:33 | disposition home or self-care (01) ==
LOC: SUATTDRO 13:26 → N.TELEN 13:26 → INTOOBSV 13:26
PROVIDERS: ADMIT Internal Medicine; ATTEND Internal Medicine

== ENCOUNTER 2020-01-25 05:19 | Observation (INO) ==
[2020-01-25] MEDS ORDERED: PROMETHAZINE 25 MG TABLET PO PRN (08:32)
[2020-01-25] MEDS ORDERED: DEXTROSE 50% 25 GM/50 ML VIAL IV PRN (08:32)
[2020-01-25] MEDS ORDERED: ONDANSETRON 4 MG/2 ML VIAL IV PRN (08:32)
[2020-01-25] MEDS ORDERED: guaiFENesin/DM ER 600-30 MG TABLET PO PRN (08:32)
[2020-01-25] MEDS ORDERED: NICOTINE 21 MG/24 HR PATCH TRANSDERM PRN (08:32)
[2020-01-25] MEDS ORDERED: diphenhydrAMINE CAP 25 MG CAPSULE PO PRN (08:32)
[2020-01-25] MEDS ORDERED: BISACODYL 5 MG TABLET PO PRN (08:32)
[2020-01-25] MEDS ORDERED: DOCUSATE SODIUM 100 MG CAPSULE PO PRN (08:32)
[2020-01-25] MEDS ORDERED: hydrALAZINE 20 MG/1 ML VIAL IV PRN (08:32)
[2020-01-25] MEDS ORDERED: GLUCAGON 1 MG VIAL IM PRN (08:32)
[2020-01-25] MEDS ORDERED: carvediloL 12.5 MG TABLET PO SCH (09:00)
[2020-01-25] MEDS: CLOPIDOGREL 75 MG TABLET PO SCH (09:11)
[2020-01-25] MEDS: hydrALAZINE 10 MG TABLET PO SCH ×3 (09:12→21:20)
[2020-01-25] MEDS: metFORMIN 500 MG TABLET PO SCH (09:12)
[2020-01-25] MEDS: GABAPENTIN 400 MG CAPSULE PO SCH ×3 (09:12→21:19)
[2020-01-25] MEDS: ISOSORBIDE MONONITRATE 30 MG TABLET PO SCH (09:12)
[2020-01-25] MEDS: ASPIRIN CHEW 81 MG TABLET PO SCH (09:12)
[2020-01-25] MEDS: PANTOPRAZOLE 40 MG TABLET PO SCH (09:12)
[2020-01-25] MEDS: POTASSIUM CHLORIDE 10 MEQ TABLET PO SCH (09:12)
[2020-01-25] MEDS: oxyCODONE/ACETAMINOPHEN 5-325 MG TABLET PO PRN (09:16)
[2020-01-25] MEDS ORDERED: carvediloL 12.5 MG TABLET PO ONE (09:19)
[2020-01-25] MEDS ORDERED: ESCITALOPRAM 10 MG TABLET PO ONE (09:20)
[2020-01-25 09:28] LABS: Basophils # 0.1 10*3/uL (0.0-0.2); Basophils % 0.8 % (0.0-0.8); Eosinophils # 0.2 10*3/uL (0.0-0.87); Eosinophils % 2.9 % (0.00-10.9); Hematocrit 34.4 VOL% (35.7-47.0); Immature Granulocytes % 0.4 %; Immature Granulocytes Absolute 0.03 #; Lymphocytes # 1.7 10*3/uL (1.4-4.0); Mean Corpuscular Volume 89.8 FL (87-102); Mean Platelet Volume 10.4 FL (9.6-12.0); Monocytes % 6.2 % (1.7-12.7); Neutrophils % 69.7 % (38.7-73.9); Platelet Count 294 T/CUMM (130-400); Red Blood Count 3.83 MC/CUMM (3.8-5.5); Red Cell Distribution Width 14.6 % (9.3-17.3); White Blood Count 8.3 T/CUMM (4-12)
[2020-01-25] MEDS: BRIMONIDINE 0.1% OPH SOLN 5 ML BOTTLE RIGHT EYE SCH ×3 (10:07→21:23)
[2020-01-25] MEDS: clonazePAM 0.5 MG TABLET PO SCH ×2 (10:08→21:19)
[2020-01-25 10:11] LABS: Albumin 2.8 G/DL (3.4-5.0); Bilirubin,Total 0.5 MG/DL (0.2-1.0); Calcium 9.2 MG/DL (8.5-10.1); Osmolality,Calculated 289.8 MOS/KG (273-304); Total Protein 7.1 G/DL (6.4-8.3)
[2020-01-25 10:20] LABS: Troponin I 0.982 NG/ML (0.00-0.045)
[2020-01-25] MEDS ORDERED: MAGNESIUM SULF RIDER 2 GM in PREMIX 1 EACH IV ONE (11:08)
[2020-01-25] MEDS: INSULIN REGULAR 100 UNIT/ML SUBCUT SCH ×3 (12:59→21:40)
[2020-01-25] MEDS ORDERED: ACETAMINOPHEN INJ 1,000 MG in PREMIX 1 EACH IV ONE (13:11)
[2020-01-25 13:29] LABS: Troponin I 0.877 NG/ML (0.00-0.045)
[2020-01-25] MEDS: LIDOCAINE 5% PATCH TRANSDERM SCH (14:12)
[2020-01-25 15:57] LABS: Troponin I 0.826 NG/ML (0.00-0.045)
[2020-01-25] MEDS: FUROSEMIDE 40 MG/4 ML VIAL IV SCH (16:28)
[2020-01-25] MEDS ORDERED: ATORVASTATIN 40 MG TABLET PO SCH (21:00)
[2020-01-25] MEDS: carvediloL 25 MG TABLET PO SCH (21:20)
[2020-01-26] MEDS: oxyCODONE/ACETAMINOPHEN 5-325 MG TABLET PO PRN ×3 (04:51→16:25)
[2020-01-26 05:48] LABS: Basophils # 0.1 10*3/uL (0.0-0.2); Basophils % 0.9 % (0.0-0.8); Eosinophils # 0.3 10*3/uL (0.0-0.87); Eosinophils % 4.2 % (0.00-10.9); Hematocrit 29.7 VOL% (35.7-47.0); Hemoglobin 9.3 GM/DL (12.0-16.0); Immature Granulocytes % 0.5 %; Immature Granulocytes Absolute 0.03 #; Lymphocytes # 1.9 10*3/uL (1.4-4.0); Lymphocytes % 29.2 % (21.3-54.2); Mean Corpuscular HGB Conc 31.3 GM/DL (32-36); Mean Corpuscular Volume 90.8 FL (87-102); Mean Platelet Volume 11.1 FL (9.6-12.0); Monocytes % 6.8 % (1.7-12.7); Neutrophils % 58.4 % (38.7-73.9); Platelet Count 242 T/CUMM (130-400); Red Blood Count 3.27 MC/CUMM (3.8-5.5); Red Cell Distribution Width 14.6 % (9.3-17.3); White Blood Count 6.6 T/CUMM (4-12)
[2020-01-26 06:15] LABS: Albumin 2.2 G/DL (3.4-5.0); Bilirubin,Total 0.5 MG/DL (0.2-1.0); Calcium 8.8 MG/DL (8.5-10.1); Osmolality,Calculated 284.5 MOS/KG (273-304)
[2020-01-26] MEDS ORDERED: NITROGLYCERIN SL 0.4 MG TABLET SL PRN (08:42)
[2020-01-26] MEDS ORDERED: ESCITALOPRAM 10 MG TABLET PO SCH (09:00)
[2020-01-26] MEDS: clonazePAM 0.5 MG TABLET PO SCH (09:14)
[2020-01-26] MEDS: ISOSORBIDE MONONITRATE 30 MG TABLET PO SCH (09:14)
[2020-01-26] MEDS: metFORMIN 500 MG TABLET PO SCH (09:14)
[2020-01-26] MEDS: hydrALAZINE 10 MG TABLET PO SCH ×2 (09:14→15:19)
[2020-01-26] MEDS: carvediloL 25 MG TABLET PO SCH (09:14)
[2020-01-26] MEDS: POTASSIUM CHLORIDE 10 MEQ TABLET PO SCH (09:14)
[2020-01-26] MEDS: GABAPENTIN 400 MG CAPSULE PO SCH ×2 (09:15→15:19)
[2020-01-26] MEDS: FUROSEMIDE 40 MG/4 ML VIAL IV SCH ×2 (09:15→16:24)
[2020-01-26] MEDS: ASPIRIN CHEW 81 MG TABLET PO SCH (09:15)
[2020-01-26] MEDS: LIDOCAINE 5% PATCH TRANSDERM SCH (09:15)
[2020-01-26] MEDS: INSULIN REGULAR 100 UNIT/ML SUBCUT SCH ×3 (09:15→17:40)
[2020-01-26] MEDS: CLOPIDOGREL 75 MG TABLET PO SCH (09:15)
[2020-01-26] MEDS: PANTOPRAZOLE 40 MG TABLET PO SCH (09:15)
[2020-01-26] MEDS: BRIMONIDINE 0.1% OPH SOLN 5 ML BOTTLE RIGHT EYE SCH ×2 (09:24→15:19)
[2020-01-26 15:53] VITALS: BP 145/77
[2020-01-27] MEDS ORDERED: glipiZIDE 10 MG TABLET PO SCH (07:30)
== END 2020-01-26 17:55 | disposition home or self-care (01) ==
LOC: N.TELES → SUATTDRO 08:03
PROVIDERS: ADMIT Internal Medicine; ATTEND Internal Medicine

== ENCOUNTER 2020-05-31 19:04 | Inpatient (IN) ==
[2020-05-31] MEDS ORDERED: HYDROmorphone 2 MG/1 ML VIAL IV STA (19:26)
[2020-05-31] MEDS ORDERED: NITROGLYCERIN 2% OINT 1 INCH/GM PACK TOP STA (19:26)
[2020-05-31] MEDS ORDERED: ASPIRIN 325 MG TABLET PO STA (19:26)
[2020-05-31] MEDS ORDERED: ONDANSETRON 4 MG/2 ML VIAL IV STA (19:26)
[2020-05-31 19:38] LABS: Basophils # 0.1 10*3/uL (0.0-0.2); Basophils % 0.9 % (0.0-0.8); Eosinophils # 0.1 10*3/uL (0.0-0.87); Hematocrit 38.5 VOL% (35.7-47.0); Hemoglobin 12.9 GM/DL (12.0-16.0); Immature Granulocytes % 0.3 %; Immature Granulocytes Absolute 0.03 #; Lymphocytes # 2.6 10*3/uL (1.4-4.0); Mean Corpuscular HGB Conc 33.5 GM/DL (32-36); Mean Corpuscular Volume 86.3 FL (87-102); Monocytes % 7.3 % (1.7-12.7); Neutrophils % 62.5 % (38.7-73.9); Platelet Count 284 T/CUMM (130-400); Red Blood Count 4.46 MC/CUMM (3.8-5.5); Red Cell Distribution Width 14.3 % (9.3-17.3); White Blood Count 9.3 T/CUMM (4-12)
[2020-05-31 19:44] LABS: INR 0.9; PT Patient Result 10.2 SECS (9.8-11.9)
[2020-05-31] MEDS ORDERED: ENOXAPARIN 100 MG/ML SYRINGE SUBCUT STA (19:45)
[2020-05-31] MEDS ORDERED: METOPROLOL TARTRATE 5 MG/5 ML VIAL IV STA (19:46)
[2020-05-31 19:51] LABS: Alanine Aminotransferase 17 U/L (13-56); Albumin 3.1 G/DL (3.4-5.0); Alkaline Phosphatase 153 U/L (45-117); Aspartate Amino Transferase 21 U/L (0-37); Bilirubin,Total < 0.39 MG/DL (0.2-1.0); Blood Urea Nitrogen 26 MG/DL (7-18); Calcium 8.8 MG/DL (8.5-10.1); Carbon Dioxide 19 MMOL/L (21-32); Estimated Glom Filtration Rate 24 ML/MIN; Glucose 198 MG/DL (74-106); Osmolality,Calculated 283.8 MOS/KG (273-304); Potassium 3.9 MMOL/L (3.5-5.1); Sodium 137 MMOL/L (136-145); Total Protein 7.7 G/DL (6.4-8.3)
[2020-05-31] MEDS ORDERED: GLUCAGON 1 MG VIAL IM PRN (21:04)
[2020-05-31] MEDS ORDERED: DEXTROSE 50% 25 GM/50 ML VIAL IV PRN (21:04)
[2020-05-31] MEDS: INSULIN REGULAR 100 UNIT/ML SUBCUT SCH (21:45)
[2020-05-31] MEDS: ONDANSETRON 4 MG/2 ML VIAL IV PRN (23:17)
[2020-05-31] MEDS: HYDROmorphone 2 MG/1 ML VIAL IV PRN (23:18)
[2020-06-01] MEDS: NITROGLYCERIN 2% OINT 1 INCH/GM PACK TOP SCH ×2 (00:22→05:48)
[2020-06-01] MEDS: HYDROmorphone 2 MG/1 ML VIAL IV PRN ×4 (02:21→10:48)
[2020-06-01] MEDS: ONDANSETRON 4 MG/2 ML VIAL IV PRN ×2 (04:33→09:15)
[2020-06-01 05:52] LABS: Basophils # 0.1 10*3/uL (0.0-0.2); Basophils % 1.1 % (0.0-0.8); Eosinophils # 0.1 10*3/uL (0.0-0.87); Eosinophils % 1.3 % (0.00-10.9); Hematocrit 33.4 VOL% (35.7-47.0); Immature Granulocytes % 0.4 %; Immature Granulocytes Absolute 0.03 #; Lymphocytes # 2.3 10*3/uL (1.4-4.0); Lymphocytes % 30.6 % (21.3-54.2); Mean Corpuscular HGB Conc 32.3 GM/DL (32-36); Mean Corpuscular Volume 88.4 FL (87-102); Mean Platelet Volume 10.7 FL (9.6-12.0); Monocytes % 9.9 % (1.7-12.7); Neutrophils % 56.7 % (38.7-73.9); Red Blood Count 3.78 MC/CUMM (3.8-5.5); Red Cell Distribution Width 14.1 % (9.3-17.3); White Blood Count 7.5 T/CUMM (4-12)
[2020-06-01 06:07] LABS: Alanine Aminotransferase 12 U/L (13-56); Albumin 2.4 G/DL (3.4-5.0); Alkaline Phosphatase 128 U/L (45-117); Aspartate Amino Transferase 13 U/L (0-37); Bilirubin,Total < 0.39 MG/DL (0.2-1.0); Blood Urea Nitrogen 25 MG/DL (7-18); Calcium 8.5 MG/DL (8.5-10.1); Carbon Dioxide 19 MMOL/L (21-32); Estimated Glom Filtration Rate 23 ML/MIN; Glucose 139 MG/DL (74-106); HDL Cholesterol 31 MG/DL (40-60); Potassium 3.5 MMOL/L (3.5-5.1); Risk Ratio 7.84; Sodium 136 MMOL/L (136-145); Total Protein 6.3 G/DL (6.4-8.3); Triglycerides 291 MG/DL (2-150); VLDL CHOLESTEROL 58.2 MG/DL
[2020-06-01 06:08] LABS: Hemoglobin 10.8 GM/DL (12.0-16.0); Platelet Count 222 T/CUMM (130-400)
[2020-06-01] MEDS ORDERED: NITROGLYCERIN 2% OINT 1 INCH/GM PACK TOP ONE (07:57)
[2020-06-01] MEDS ORDERED: diphenhydrAMINE CAP 25 MG CAPSULE PO ONE (08:07)
[2020-06-01] MEDS ORDERED: DIAZEPAM 5 MG TABLET PO ONE (08:07)
[2020-06-01] MEDS ORDERED: SODIUM CHLORIDE 0.9% 1,000 ML IV SCH (08:30)
[2020-06-01] MEDS: INSULIN REGULAR 100 UNIT/ML SUBCUT SCH ×4 (09:47→21:06)
[2020-06-01] MEDS ORDERED: LIDOCAINE 1% 20 ML VIAL ONE (12:41)
[2020-06-01] MEDS ORDERED: MIDAZOLAM 2 MG/2 ML VIAL ONE ×2 (12:41→13:10)
[2020-06-01] MEDS ORDERED: LABETALOL 20 MG/4 ML SYRINGE IV ONE (13:01)
[2020-06-01] MEDS ORDERED: ENOXAPARIN 60 MG/0.6 ML SYRINGE ONE (13:10)
[2020-06-01] MEDS ORDERED: CLOPIDOGREL 300 MG TABLET ONE (13:36)
[2020-06-01] MEDS: CLOPIDOGREL 75 MG TABLET PO SCH (15:10)
[2020-06-01] MEDS: hydrALAZINE 10 MG TABLET PO SCH ×3 (15:10→21:07)
[2020-06-01] MEDS: FUROSEMIDE 40 MG TABLET PO SCH (15:10)
[2020-06-01] MEDS: ASPIRIN CHEW 81 MG TABLET PO SCH (15:10)
[2020-06-01] MEDS: POTASSIUM CHLORIDE 10 MEQ TABLET PO SCH (15:10)
[2020-06-01] MEDS: ISOSORBIDE MONONITRATE 30 MG TABLET PO SCH (15:10)
[2020-06-01] MEDS: METOPROLOL SUCCINATE XL 25 MG TABLET PO SCH ×2 (15:11→21:07)
[2020-06-01] MEDS: PANTOPRAZOLE 40 MG TABLET PO SCH (15:11)
[2020-06-01] MEDS: ENOXAPARIN 80 MG/0.8 ML SYRINGE SUBCUT SCH (21:06)
[2020-06-01] MEDS: ATORVASTATIN 40 MG TABLET PO SCH (21:06)
[2020-06-02 05:13] LABS: Basophils # 0.1 10*3/uL (0.0-0.2); Basophils % 0.7 % (0.0-0.8); Eosinophils # 0.1 10*3/uL (0.0-0.87); Eosinophils % 1.8 % (0.00-10.9); Hematocrit 28.8 VOL% (35.7-47.0); Hemoglobin 9.7 GM/DL (12.0-16.0); Immature Granulocytes % 0.3 %; Immature Granulocytes Absolute 0.02 #; Lymphocytes # 1.1 10*3/uL (1.4-4.0); Lymphocytes % 13.8 % (21.3-54.2); Mean Corpuscular HGB Conc 33.7 GM/DL (32-36); Mean Corpuscular Volume 87.5 FL (87-102); Mean Platelet Volume 11.1 FL (9.6-12.0); Monocytes % 8.5 % (1.7-12.7); Neutrophils % 74.9 % (38.7-73.9); Platelet Count 213 T/CUMM (130-400); Red Blood Count 3.29 MC/CUMM (3.8-5.5); Red Cell Distribution Width 14.1 % (9.3-17.3); White Blood Count 7.6 T/CUMM (4-12)
[2020-06-02 05:36] LABS: Blood Urea Nitrogen 31 MG/DL (7-18); Calcium 8.1 MG/DL (8.5-10.1); Carbon Dioxide 20 MMOL/L (21-32); Estimated Glom Filtration Rate 18 ML/MIN; Glucose 150 MG/DL (74-106); Osmolality,Calculated 282.8 MOS/KG (273-304); Sodium 137 MMOL/L (136-145)
[2020-06-02] MEDS ORDERED: SODIUM CHLORIDE 0.9% 1,000 ML IV SCH (09:00)
[2020-06-02] MEDS: CLOPIDOGREL 75 MG TABLET PO SCH (09:07)
[2020-06-02] MEDS ORDERED: MAGNESIUM SULF RIDER 4 GM in PREMIX 1 EACH IV PRN (09:07)
[2020-06-02] MEDS ORDERED: MAGNESIUM SULF RIDER 2 GM in PREMIX 1 EACH IV PRN (09:07)
[2020-06-02] MEDS: ASPIRIN CHEW 81 MG TABLET PO SCH (09:07)
[2020-06-02] MEDS: hydrALAZINE 10 MG TABLET PO SCH ×3 (09:11→21:15)
[2020-06-02] MEDS: FUROSEMIDE 40 MG TABLET PO SCH (09:11)
[2020-06-02] MEDS: PANTOPRAZOLE 40 MG TABLET PO SCH (09:12)
[2020-06-02] MEDS: POTASSIUM CHLORIDE 10 MEQ TABLET PO SCH (09:12)
[2020-06-02] MEDS: METOPROLOL SUCCINATE XL 25 MG TABLET PO SCH ×2 (09:13→21:14)
[2020-06-02] MEDS: ISOSORBIDE MONONITRATE 30 MG TABLET PO SCH (09:19)
[2020-06-02] MEDS: ACETAMINOPHEN 325 MG TABLET PO PRN ×2 (09:19→21:13)
[2020-06-02] MEDS: INSULIN REGULAR 100 UNIT/ML SUBCUT SCH ×4 (09:20→21:29)
[2020-06-02] MEDS: GABAPENTIN 600 MG TABLET PO SCH ×3 (11:00→21:15)
[2020-06-02] MEDS ORDERED: GABAPENTIN 600 MG TABLET PO SCH (15:00)
[2020-06-02] MEDS: ENOXAPARIN 80 MG/0.8 ML SYRINGE SUBCUT SCH (21:15)
[2020-06-02] MEDS: ATORVASTATIN 40 MG TABLET PO SCH (21:15)
[2020-06-03 05:04] LABS: Basophils % 0.7 % (0.0-0.8); Eosinophils # 0.1 10*3/uL (0.0-0.87); Eosinophils % 2.3 % (0.00-10.9); Hematocrit 28.7 VOL% (35.7-47.0); Hemoglobin 8.9 GM/DL (12.0-16.0); Immature Granulocytes % 0.3 %; Immature Granulocytes Absolute 0.02 #; Lymphocytes # 1.4 10*3/uL (1.4-4.0); Lymphocytes % 23.2 % (21.3-54.2); Mean Platelet Volume 11.2 FL (9.6-12.0); Monocytes % 11.3 % (1.7-12.7); Neutrophils % 62.2 % (38.7-73.9); Platelet Count 170 T/CUMM (130-400); Red Blood Count 3.12 MC/CUMM (3.8-5.5); Red Cell Distribution Width 14.1 % (9.3-17.3)
[2020-06-03 05:34] LABS: Calcium 8.2 MG/DL (8.5-10.1); Osmolality,Calculated 290.5 MOS/KG (273-304); Potassium 4.2 MMOL/L (3.5-5.1)
[2020-06-03] MEDS: ASPIRIN CHEW 81 MG TABLET PO SCH (08:28)
[2020-06-03] MEDS: CLOPIDOGREL 75 MG TABLET PO SCH (08:29)
[2020-06-03] MEDS: GABAPENTIN 600 MG TABLET PO SCH ×3 (08:29→21:18)
[2020-06-03] MEDS: FUROSEMIDE 40 MG TABLET PO SCH (08:30)
[2020-06-03] MEDS: METOPROLOL SUCCINATE XL 25 MG TABLET PO SCH ×2 (08:30→21:18)
[2020-06-03] MEDS: POTASSIUM CHLORIDE 10 MEQ TABLET PO SCH (08:31)
[2020-06-03] MEDS: ISOSORBIDE MONONITRATE 30 MG TABLET PO SCH (08:32)
[2020-06-03] MEDS: hydrALAZINE 10 MG TABLET PO SCH ×3 (08:32→21:18)
[2020-06-03] MEDS: PANTOPRAZOLE 40 MG TABLET PO SCH (08:33)
[2020-06-03] MEDS: INSULIN REGULAR 100 UNIT/ML SUBCUT SCH ×4 (08:35→21:20)
[2020-06-03] MEDS: HYDROmorphone 2 MG/1 ML VIAL IV PRN ×3 (11:13→19:53)
[2020-06-03 12:47] LABS: % Iron Saturation 17.8 % (18-50)
[2020-06-03] MEDS ORDERED: ALUM/MAG/SIMETH/LIDO VISC 1:1 30 ML BOTTLE PO ONE (14:20)
[2020-06-03] MEDS ORDERED: SODIUM CHLORIDE 0.45% 1,000 ML IV SCH (14:30)
[2020-06-03] MEDS: NITROGLYCERIN SL 0.4 MG TABLET SL PRN ×2 (14:31→19:44)
[2020-06-03] MEDS ORDERED: LORazepam 2 MG/1 ML VIAL IV ONE (20:05)
[2020-06-03] MEDS ORDERED: PANTOPRAZOLE 40 MG TABLET PO SCH (21:00)
[2020-06-03] MEDS: ENOXAPARIN 80 MG/0.8 ML SYRINGE SUBCUT SCH (21:17)
[2020-06-03] MEDS: ATORVASTATIN 40 MG TABLET PO SCH (21:19)
[2020-06-04 00:52] VITALS: BP 125/96
[2020-06-04] MEDS ORDERED: AMIODARONE 450 MG/9 ML VIAL IV ONE (04:21)
[2020-06-04] MEDS ORDERED: SODIUM CHLORIDE 0.9% 1,000 ML IV ONE (04:24)
[2020-06-04] MEDS ORDERED: AMIODARONE INJ 300 MG in DEXTROSE 5% 100 ML IV ONE (04:27)
[2020-06-04] MEDS ORDERED: PHENYLEPHRINE DRIP 40 MG/250 ML PREMIX IV ONE (04:28)
[2020-06-04] MEDS ORDERED: AMIODARONE INJ 450 MG in DEXTROSE 5% 241 ML IV SCH (04:30)
[2020-06-04] MEDS ORDERED: PHENYLEPHRINE DRIP 40 MG/250 ML PREMIX IV PRN (04:50)
[2020-06-04] MEDS ORDERED: SODIUM BICARBONATE 50 MEQ/50 ML VIAL IV ONE (04:50)
[2020-06-04] MEDS ORDERED: FUROSEMIDE 40 MG/4 ML VIAL IV ONE (04:51)
[2020-06-04 05:00] LABS: ABG Base Excess -11.7 MMOL/L (-2.5-2.5); ABG HCO3 14.4 MMOL/L (20-26); ABG Oxygen Saturation 89.9 % (95-100); ABG PCO2 33.1 MM HG (35-48); ABG PH 7.256 (7.35-7.45); ABG PO2 63.9 MM HG (80-95); ABG TCO2 15.4 MMOL/L (23-27)
[2020-06-04] MEDS ORDERED: FUROSEMIDE 40 MG/4 ML VIAL ONE (05:01)
[2020-06-04] MEDS ORDERED: FUROSEMIDE 20 MG/2 ML VIAL IV ONE (05:04)
[2020-06-04] MEDS ORDERED: AMIODARONE 150 MG/3 ML VIAL ONE (05:05)
[2020-06-04] MEDS ORDERED: MAGNESIUM SULFATE 1 GM/2 ML VIAL ONE (05:05)
[2020-06-04] MEDS ORDERED: CALCIUM CHLORIDE 1,000 MG/10 ML SYRINGE IV ONE ×2 (05:05→06:18)
[2020-06-04] MEDS ORDERED: SODIUM BICARBONATE 50 MEQ/50 ML SYRINGE IV ONE ×2 (05:05→06:18)
[2020-06-04] MEDS ORDERED: EPINEPHrine 1 MG/10 ML SYRINGE ONE (05:05)
[2020-06-04 05:08] LABS: Basophils # 0.1 10*3/uL (0.0-0.2); Basophils % 0.3 % (0.0-0.8); Eosinophils # 0.1 10*3/uL (0.0-0.87); Eosinophils % 0.8 % (0.00-10.9); Hematocrit 26.5 VOL% (35.7-47.0); Hemoglobin 8.3 GM/DL (12.0-16.0); Immature Granulocytes % 1.7 %; Immature Granulocytes Absolute 0.31 #; Lymphocytes # 2.4 10*3/uL (1.4-4.0); Mean Corpuscular HGB Conc 31.3 GM/DL (32-36); Mean Corpuscular Volume 92.7 FL (87-102); Mean Platelet Volume 11.2 FL (9.6-12.0); Monocytes % 3.2 % (1.7-12.7); Platelet Count 225 T/CUMM (130-400); Red Blood Count 2.86 MC/CUMM (3.8-5.5); White Blood Count 18.4 T/CUMM (4-12)
[2020-06-04 05:36] LABS: Alanine Aminotransferase 176 U/L (13-56); Albumin 1.7 G/DL (3.4-5.0); Alkaline Phosphatase 121 U/L (45-117); Aspartate Amino Transferase 264 U/L (0-37); Band Neutrophils 5 % (0-10); Blood Urea Nitrogen 29 MG/DL (7-18); Calcium 7.1 MG/DL (8.5-10.1); Carbon Dioxide 15 MMOL/L (21-32); Estimated Glom Filtration Rate 13 ML/MIN; Glucose 365 MG/DL (74-106); Hypochromasia 2+; Lymphocytes 14 % (20-55); Microcytosis 1+; Ovalocytes Slight; Platelet Estimate Adequate; Potassium 5.1 MMOL/L (3.5-5.1); Segmented Neutrophils 80 % (50-85); Sodium 136 MMOL/L (136-145); Total Cells Counted 100
[2020-06-04] MEDS ORDERED: EPINEPHrine 1 MG/10 ML SYRINGE IV ONE (06:18)
[2020-06-04] MEDS ORDERED: MAGNESIUM SULFATE 1 GM/2 ML VIAL IV ONE (06:18)
[2020-06-04] MEDS ORDERED: AMIODARONE 150 MG/3 ML VIAL IV ONE (06:18)
== END 2020-06-04 06:19 | disposition expired | DRG 247 ==
LOC: EDBD → EDUNIT# → N.ED 19:04 → N.EDINP 21:04 → N.TELEN 06-01 01:03 → N.ICU 06-04 04:22
PROVIDERS: ADMIT Family Medicine; ATTEND Family Medicine